=== PATIENT | male | born 1960 | race African-American/Black ===

== ENCOUNTER 2016-07-17 06:11 | Emergency (ER) | payer MEDICAID ==
[~2016-07-17] VITALS: Ht 180.3 cm; Wt 76.0 kg
[~2016-07-17 06:11] MED LIST: CARI350T PO; DIAZ10TA PO; FERR325T6 PO; OMEP20CA4 PO; QUET200T PO; QUET50TA13 PO; TRAZ-132 PO
[2016-07-17] MEDS ORDERED: LORAZEPAM 2MG/ML CPJ IM PRN (07:00)
[2016-07-17] MEDS ORDERED: OLANZAPINE 10 MG/VIAL IM ONE (07:00)
[2016-07-17 07:31] LABS: BASOPHILS % 0.6 % (0.0-2.0); EOSINOPHILS % 0.4 % (0.0-5.0); HEMATOCRIT. 42.4 % (42.0-52.0); LYMPHOCYTES % 12.5 % (20.0-50.0); MEAN CORPUSCULAR HEMOGLOBIN 32.2 pg (28.0-32.0); MEAN CORPUSCULAR HGB CONC 35.2 g/dL (31.0-37.0); MEAN CORPUSCULAR VOLUME 91.4 fL (80.0-94.0); MONOCYTES % 8.6 % (2.0-8.0); NEUTROPHILS % 77.9 % (40.0-76.0); PLATELET 312 x1000/uL (130-400); RED BLOOD CELL COUNT 4.64 mill/uL (4.7-6.1); RED CELL DISTRIBUTION WIDTH 13.5 % (11.6-14.6); WHITE BLOOD COUNT 11.4 x1000/uL (4.5-11.0)
[2016-07-17 07:46] LABS: ACETAMINOPHEN < 2 ug/mL (10-30); ALANINE AMINOTRANSFERASE 23 IU/L (13-61); ALBUMIN 4.4 g/dL (3.4-5.0); ANION GAP 12; CALCIUM 9.2 mg/dL (8.5-10.1); CARBON DIOXIDE 27 mEq/L (21-32); CHLORIDE 101 mEq/L (98-107); ETHANOL BLOOD < 10 mg/dL; INDEX HEMOLYSI 1 (1-3); INDEX ICTERIC 1 (1-4); INDEX LIPEMIC 1 (1-3); UREA NITROGEN BLOOD 19 mg/dL (7-21); eGFR > 60 mL/min (>60)
[2016-07-17 07:57] LABS: CLARITY URINE CLEAR (CLEAR); COLOR URINE YELLOW (YELLOW); GLUCOSE URINE NEGATIVE (NEGATIVE); KETONES URINE 1+ (NEGATIVE); LEUKOCYTE ESTERASE URINE NEGATIVE (NEGATIVE); NITRITE URINE NEGATIVE (NEGATIVE); OCCULT BLOOD URINE NEGATIVE (NEGATIVE); PROTEIN URINE NEGATIVE (NEGATIVE); SPECIFIC GRAVITY URINE 1.026 (1.005-1.030); UROBILINOGEN URINE 0.2 E.U./dL (0.2-1.0)
[2016-07-17 08:17] LABS: *AMPHETAMINES SCREEN URINE NEGATIVE (NEGATIVE); *BARBITURATES SCREEN URINE NEGATIVE (NEGATIVE); *BENZODIAZEPINES SCREEN URINE NEGATIVE (NEGATIVE); *COCAINE SCREEN URINE PRESUMTIVE POSITIVE (NEGATIVE); CANNABINOID URINE SCREEN NEGATIVE (NEGATIVE); ECSTASY MDMA SCREEN URINE NEGATIVE (NEGATIVE); METHADONE URINE SCREEN NEGATIVE (NEGATIVE); OPIATES URINE SCREEN NEGATIVE (NEGATIVE); PHENCYCLIDINE URINE SCREEN NEGATIVE (NEGATIVE)
[2016-07-18 14:57] VITALS: BP 120/75
== END 2016-07-18 15:10 ==
LOC: ER 06:11
DX: F14.959 Cocaine use, unspecified with cocaine-induced psychotic disorder, unspecified (principal); F20.0 Paranoid schizophrenia; G89.29 Other chronic pain; F41.9 Anxiety disorder, unspecified; F17.200 Nicotine dependence, unspecified, uncomplicated; R05 Cough; F10.99 Alcohol use, unspecified with unspecified alcohol-induced disorder; Y90.9 Presence of alcohol in blood, level not specified; Z98.890 Other specified postprocedural states; Z79.899 Other long term (current) drug therapy
CPT/HCPCS: 36415; 80053; 80305; 80329; 81003; 85025; 93005; 96372; 99285; G0482; J2060; J3490; Z7610; 80307

== ENCOUNTER 2017-02-14 09:49 | Emergency (ER) | payer MEDICAID ==
[~2017-02-14] VITALS: Ht 177.8 cm; Wt 54.0 kg
[2017-02-14] MEDS ORDERED: OLANZAPINE 5MG TABLET ODT PO ONE (11:00)
[2017-02-14 11:30] LABS: BASOPHILS % 1.1 % (0.0-2.0); EOSINOPHILS % 1.8 % (0.0-5.0); HEMATOCRIT. 41.4 % (42.0-52.0); HEMOGLOBIN. 14.5 g/dL (14.0-18.0); LYMPHOCYTES % 26.6 % (20.0-50.0); MEAN CORPUSCULAR VOLUME 88.8 fL (80.0-94.0); MEAN PLATELET VOLUME 7.5 fl (7.4-10.4); MONOCYTES % 11.2 % (2.0-8.0); NEUTROPHILS % 59.3 % (40.0-76.0); PLATELET 255 x1000/uL (130-400); RED BLOOD CELL COUNT 4.67 mill/uL (4.7-6.1); RED CELL DISTRIBUTION WIDTH 13.4 % (11.6-14.6)
[2017-02-14 11:44] LABS: CARBON DIOXIDE 25 mEq/L (21-32); CHLORIDE 104 mEq/L (98-107); ETHANOL BLOOD < 10 mg/dL
[2017-02-14 13:15] LABS: *AMPHETAMINES SCREEN URINE NEGATIVE (NEGATIVE); *BARBITURATES SCREEN URINE NEGATIVE (NEGATIVE); *BENZODIAZEPINES SCREEN URINE NEGATIVE (NEGATIVE); *COCAINE SCREEN URINE NEGATIVE (NEGATIVE); CANNABINOID URINE SCREEN NEGATIVE (NEGATIVE); METHADONE URINE SCREEN NEGATIVE (NEGATIVE); OPIATES URINE SCREEN NEGATIVE (NEGATIVE); PHENCYCLIDINE URINE SCREEN NEGATIVE (NEGATIVE)
[2017-02-14 16:54] VITALS: BP 132/81
== END 2017-02-14 17:45 | disposition home or self-care (01) ==
LOC: ER 09:49
DX: F23 Brief psychotic disorder (principal); R45.851 Suicidal ideations; F20.9 Schizophrenia, unspecified; F17.210 Nicotine dependence, cigarettes, uncomplicated; I10 Essential (primary) hypertension; Z71.6 Tobacco abuse counseling
CPT/HCPCS: 36415; 80048; 80305; 80307; 80329; 85025; 99284; G0482; Z7610

== ENCOUNTER 2023-02-28 07:09 | Emergency (ER) | payer MEDICAID ==
[~2023-02-28] VITALS: Ht 180.3 cm; Wt 75.0 kg
[~2023-02-28 07:09] MED LIST changes: -CARI350T PO; +CARI350T28 PO; +DIAZ-570 PO; -DIAZ10TA PO; -QUET50TA13 PO; +QUET50TA14 PO; -TRAZ-132 PO; +TRAZ-252 PO
[2023-02-28 07:36] VITALS: BP 109/76; PULSE 82; RESP 16; TEMP 98.7; O2SAT 99
== END 2023-02-28 08:51 | disposition left against medical advice (07) ==
LOC: ER 07:09
DX: Z76.0 Encounter for issue of repeat prescription (principal); I10 Essential (primary) hypertension; Z53.21 Procedure and treatment not carried out due to patient leaving prior to being seen by health care provider; Z79.899 Other long term (current) drug therapy
CPT/HCPCS: 99281

== ENCOUNTER 2024-12-05 06:31 | Emergency (ER) | payer MEDICAID ==
[~2024-12-05] VITALS: Ht 177.8 cm; Wt 68.0 kg
[~2024-12-05 06:31] MED LIST changes: +CARI-518 PO; -CARI350T28 PO
[2024-12-05 06:47] VITALS: O2SAT 99
[2024-12-05 07:17] LABS: BASOPHILS % 0.5 % (0.0-2.0); EOSINOPHILS % 1.4 % (0.0-5.0); HEMATOCRIT. 38.7 % (42.0-52.0); HEMOGLOBIN. 13.3 g/dL (14.0-18.0); LYMPHOCYTES % 11.7 % (20.0-50.0); MEAN PLATELET VOLUME 7.1 fl (7.4-10.4); MONOCYTES % 5.4 % (2.0-8.0); NEUTROPHILS % 81.0 % (40.0-76.0); PLATELET 368 x1000/uL (130-400); RED BLOOD CELL COUNT 4.34 mill/uL (4.7-6.1); RED CELL DISTRIBUTION WIDTH 13.3 % (11.6-14.6)
[2024-12-05 07:31] LABS: CREATININE 1.0 mg/dL (0.6-1.3)
[2024-12-05 07:32] LABS: ETHANOL BLOOD < 10 mg/dL (<10); UREA NITROGEN BLOOD 17 mg/dL (9-23)
[2024-12-05 07:33] LABS: ASPARTATE AMINOTRANSFERASE 24 IU/L (<34)
[2024-12-05 07:34] LABS: BILIRUBIN DIRECT 0.2 mg/dL (<=3.0); BILIRUBIN TOTAL 0.7 mg/dL (0.1-1.0); PROTEIN TOTAL 8.1 g/dL (6.0-8.3)
[2024-12-05 12:54] LABS: *AMPHETAMINES SCREEN URINE NEGATIVE (NEGATIVE); *BARBITURATES SCREEN URINE NEGATIVE (NEGATIVE); *BENZODIAZEPINES SCREEN URINE NEGATIVE (NEGATIVE); *COCAINE SCREEN URINE PRESUMPTIVE POSITIVE (NEGATIVE)
[2024-12-05 12:55] LABS: CANNABINOID URINE SCREEN NEGATIVE (NEGATIVE); ECSTASY MDMA SCREEN URINE NEGATIVE (NEGATIVE); METHADONE URINE SCREEN NEGATIVE (NEGATIVE); OPIATES URINE SCREEN NEGATIVE (NEGATIVE); PHENCYCLIDINE URINE SCREEN NEGATIVE (NEGATIVE)
[2024-12-05] MEDS ORDERED: SULF1TAB48 MT (18:37)
[2024-12-05] MEDS ORDERED: CEPH500T MT (18:37)
[2024-12-05 19:01] VITALS: BP 135/85; PULSE 83; RESP 16; TEMP 37.2; O2SAT 99
== END 2024-12-05 19:02 | disposition short-term general hospital (02) ==
LOC: ER 06:31
DX: R45.851 Suicidal ideations (principal); I10 Essential (primary) hypertension; F17.200 Nicotine dependence, unspecified, uncomplicated; F31.9 Bipolar disorder, unspecified; F14.90 Cocaine use, unspecified, uncomplicated; Z79.899 Other long term (current) drug therapy; Z20.822 Contact with and (suspected) exposure to COVID-19
CPT/HCPCS: 36415; 80048; 80076; 80305; 80307; 80320; 80329; 85025; 87426; 99285; G0480